=== PATIENT | female | born 1990 | race Hispanic/Latino ===

== ENCOUNTER 2016-11-29 18:08 | Outpatient (CLI) | payer MEDICAID ==
[2016-11-29] MEDS ORDERED: LACTATED RINGERS 500 ML IV ONE ×2 (19:05→19:06)
[2016-11-29 20:49] LABS: Bilirubin,Urine NEG (Negative); Blood,Urine NEG (Negative); Ketones,Urine NEG (Negative); Leukocyte Esterase,Urine NEG (Negative); Mucus,Urine 3+ /HPF; Nitrite,Urine NEG (Negative); Protein,Urine <15 mg/dL mg/dL (Negative); Urobilinogen,Urine < 2.0 mg/dL (<2.0)
--- NOTE | 2016-12-02 07:55 | Ultrasound Report ---
OB LIMITED History: Bleeding, evaluate for abruption, evaluate placenta. Technique: Transabdominal ultrasound with Doppler interrogation. Gestation: Single Position: Transverse, head to maternal left Placenta: Posterior, marginal previa is suspected. No abruption. Placental Grade: 0 Heart Rate: 141 BPM Cervical length: 3.8 cm (Normal > 3 cm)
[2016-12-04 12:25] VITALS: BP 106/53
== END 2016-11-29 21:40 | disposition home or self-care (01) ==
LOC: TRG 18:08
PROVIDERS: ATTEND Obstetrics & Gynecology
DX: O46.92 Antepartum hemorrhage, unspecified, second trimester (principal); O77.9 Labor and delivery complicated by fetal stress, unspecified; O47.02 False labor before 37 completed weeks of gestation, second trimester; Z3A.23 23 weeks gestation of pregnancy
CPT/HCPCS: 59025; 76815; 81001; 96360; J7120

== ENCOUNTER 2016-12-29 08:34 | Outpatient (CLI) | payer MEDICAID ==
[2016-12-29] MEDS ORDERED: LACTATED RINGERS 1,000 ML ONE (10:15)
[2016-12-29] MEDS ORDERED: LACTATED RINGERS 500 ML IV ONE (10:58)
[2016-12-31 12:32] VITALS: BP 101/57
== END 2016-12-29 12:10 | disposition home or self-care (01) ==
LOC: TRG 08:34
PROVIDERS: ATTEND Obstetrics & Gynecology
DX: O47.02 False labor before 37 completed weeks of gestation, second trimester (principal); O44.12 Complete placenta previa with hemorrhage, second trimester; Z3A.27 27 weeks gestation of pregnancy
CPT/HCPCS: J7120

== ENCOUNTER 2017-02-24 13:18 | Outpatient (CLI) | payer MEDICAID ==
[2017-02-24] MEDS ORDERED: LACTATED RINGERS 500 ML IV ONE (13:42)
--- NOTE | 2017-02-24 14:28 | Ultrasound Report ---
BIOPHYSICAL PROFILE: INDICATION: well being, PROM. COMPARISON: 01/02/2017. TECHNIQUE: Transabdominal ultrasound with Doppler interrogation. 2 - breathing movements 2 - movements 2 - posture and tone 2 - Qualitative amniotic fluid volume 8 - TOTAL SCORE OF POSSIBLE 8 Heart Rate (bpm) 138
--- NOTE | 2017-02-24 14:29 | Ultrasound Report ---
OB LIMITED INDICATION: well being, PROM. COMPARISON: 01/02/2017 TECHNIQUE: Transabdominal grayscale ultrasound with Doppler interrogation. Gestation: Wild Position: Cephalic Amniotic Fluid: WNL (7-24 cm) KAMARI = 15.2 cm Heart Rate: 138 BPM
[2017-02-24 14:46] VITALS: BP 96/51
[2017-02-24] MEDS ORDERED: TYLENOL PO ONE (15:11)
== END 2017-02-24 15:20 | disposition home or self-care (01) ==
LOC: TRG 13:18
PROVIDERS: ATTEND Obstetrics & Gynecology
DX: O47.03 False labor before 37 completed weeks of gestation, third trimester (principal); Z3A.35 35 weeks gestation of pregnancy
CPT/HCPCS: 59025; 76815; 76819

== ENCOUNTER 2017-03-03 16:01 | Outpatient (CLI) | payer MEDICAID ==
[2017-03-03 16:24] VITALS: BP 103/66
--- NOTE | 2017-03-04 08:08 | Ultrasound Report ---
ULTRASOUND BIOPHYSICAL PROFILE: History: Vaginal bleeding during Technique: Transabdominal ultrasound with Doppler interrogation. 2 - breathing movements 2 - movements 2 - posture and tone 2 - Qualitative amniotic fluid volume 8 - TOTAL SCORE OF POSSIBLE 8 Heart Rate (bpm) 143
--- NOTE | 2017-03-04 08:08 | Ultrasound Report ---
ULTRASOUND OB LIMITED History: Vaginal bleeding during Technique: Transabdominal ultrasound with Doppler interrogation. Gestation: Single Position: Cephalic Amniotic Fluid: Normal KAMARI = 12.3 cm Placenta: Fundal Placental Grade: 1 There is no evidence for abruption. Heart Rate: 143 BPM
== END 2017-03-03 17:25 | disposition home or self-care (01) ==
LOC: TRG 16:01
PROVIDERS: ATTEND Obstetrics & Gynecology
DX: O46.92 Antepartum hemorrhage, unspecified, second trimester (principal); O47.03 False labor before 37 completed weeks of gestation, third trimester; Z3A.36 36 weeks gestation of pregnancy
CPT/HCPCS: 59025; 76815; 76819

== ENCOUNTER 2017-03-04 07:52 | Inpatient (IN) | payer MEDICAID ==
[2017-03-04] MEDS: LACTATED RINGERS 1,000 ML IV SCH (09:31)
[2017-03-04 10:13] LABS: Basophils % (Auto) 0.3 % (0.0-1.8); Eosinophils % (Auto) 0.9 % (0.0-4.3); Hematocrit 29.8 % (30.3-42.9); Hemoglobin 9.9 gm/dl (10.1-14.3); Mean Corpuscular HGB Conc 33 % (30-34); Mean Corpuscular Hemoglobin 31 pg (28-32); Mean Corpuscular Volume 93 fl (79-97); Platelet Count 172 K/mm3 (140-440); Red Blood Count 3.21 M/mm3 (3.65-5.03); Red Cell Distribution Width 12.9 % (13.2-15.2); White Blood Count 13.1 K/mm3 (4.5-11.0)
[2017-03-04 10:15] LABS: Bilirubin,Urine NEG (Negative); Blood,Urine NEG (Negative); Ketones,Urine NEG (Negative); Leukocyte Esterase,Urine NEG (Negative); Mucus,Urine 3+ /HPF; Nitrite,Urine NEG (Negative); Protein,Urine <15 mg/dL mg/dL (Negative); Urobilinogen,Urine < 2.0 mg/dL (<2.0)
[2017-03-04] MEDS ORDERED: ZOFRAN IV PRN (11:03)
[2017-03-04] MEDS: TYLENOL PO PRN ×2 (11:30→22:11)
--- NOTE | 2017-03-04 14:21 | Consultation ---
History of Present Illness Consult date: 03/04/17 Requesting physician: DOMINIC LOUIS Reason for consult: other (vaginal bleeding.) History of present illness: Thank you for your recent consultation regarding the above named patient. As you are aware, she is a 26 year-old para 1113 at 36 weeks gestation based on an LUCY of 03/29/17 admitted to [facility] due to vaginal bleeding. Patient has been under observation due to vaginal bleeding earlier today. Patient was seen for similar complaints yesterday and was discharged home but returns for recurrent symptoms. Vaginal exam shows minimal bleeding consistent with possible bloody show. Patient shows agitation/anxiety regarding vaginal bleeding. An ultrasound performed showed No placenta previa. Her recent vaginal exam was deferred. PAST OBSTETRICAL HISTORY: 2011: Twins C/S 34 weeks (BW: 4 pounds 6 oz, 2 pounds 7 oz) 2012: C/S at term BW: 7 pounds 15 oz SAB x 1 ULTRASOUND: See report in patients chart. No previa. Current measurements by ultrasound yield EGA 36 weeks Past History - Obstetrical History : 4 Medications and Allergies Allergies Allergy/AdvReac Type Severity Reaction Status Date / Time Latex, Natural Rubber Allergy Hives Verified 03/04/17 08:40 Home Medications Medication Instructions Recorded Confirmed Last Taken Type Ferrous Sulfate [Feosol 325 MG tab] 325 mg PO BID #60 tablet 01/04/17 02/24/17 21:00 Rx 1 Vit-Fe Fumar-FA [ 1 each PO QDAY tablet 01/04/17 03/04/17 21:00 Rx Vitamin] 1 Active Meds: Active Medications Acetaminophen (Tylenol) 650 mg PO Q4H PRN PRN Reason: Pain, Mild (1-3) Last Admin: 03/04/17 11:30 Dose: 650 mg Lactated Ringer's (Lactated Ringers) 1,000 mls @ 125 mls/hr IV DIRECT GIANA Last Admin: 03/04/17 09:31 Dose: 125 mls/hr Ondansetron HCl (Zofran) 4 mg IV Q4H PRN PRN Reason: Nausea And Vomiting Last Admin: 03/04/17 11:30 Dose: 4 mg - Vital Signs Vital signs: Vital Signs Pulse Pulse Ox 86 97 03/04/17 08:15 03/04/17 08:15 Temp Pulse Resp BP Pulse Ox 98.1 F 75 16 104/55 99 03/04/17 14:13 03/04/17 09:58 03/04/17 14:13 03/04/17 09:58 03/04/17 08:57 Results Result Diagrams: 03/04/17 09:00 Abnormal lab results 03/04/17 Range/Units 09:00 WBC 13.1 H (4.5-11.0) K/mm3 RBC 3.21 L (3.65-5.03) M/mm3 Hgb 9.9 L (10.1-14.3) gm/dl Hct 29.8 L (30.3-42.9) % RDW 12.9 L (13.2-15.2) % Lymph % (Auto) 12.9 L (13.4-35.0) % Seg Neutrophils % 80.1 H (40.0-70.0) % Seg Neutrophils # 10.5 H (1.8-7.7) K/mm3 All other labs normal. Assessment and Plan ASSESSMENT 1. As stated above this is a 26 year old para 1113 at 36 weeks with vaginal bleeding. 2. Rule out bloody show 3. Unlikely abruption. 4. No evidence of placenta previa. 5. Category 1 tracing. 6. Maternal anxiety. RECOMMENDATIONS 1. Patient is currently stable. 2. Patient may have regular diet. 3. We agree for observation to rule out progressive labor change in status. 4. Vaginal bleeding has decreased. 5. No evidence of placental abruption.. 6. Observe x 24-48 hours. 7. Please consider a social service consultation due to patient agitation and anxiety. 8. Consider discharge home if stable by tomorrow.. 9. We would recommend discharge home and continued follow-up with [facility]. We look forward to the opportunity to assist in her continued management. If you have any questions, please contact our office at [phone]. Anita Love M.D.
--- NOTE | 2017-03-04 17:26 | History and Physical Report ---
History of Present Illness Date of examination: 03/04/17 Date of admission: 03/04/17 10:45 Chief complaint: Vaginal bleeding again ( was seen yesterday) History of present illness: This is a 26 yo at 35 weeks here for vaginal bleeding. She was seen yesterday for bleeding an noted to have normal US and no evidence of abruption and BPP 8/. Patient was encouraged to f/u for any concerns of bleeding. Patient noted that early this am while urinating she wiped and noticed blood on tissue and even took pictures of the bleeding ( about a 3 teaspoons full. ) She denies any contractions no leaking and good movement. course include hx of placenta previa resolved Hx of 2 previous c/sec subchorionic bleed reolved Hx of trich and chlam in this treated and arely neg 12/13/16 s/p BMZ at 23 weeks 11/2016 Past History Past Medical History: no pertinent history Past Surgical History: section [employer]ATEGIST History: chlamydia, trichomonas Family/Genetic History: none Social history: single. denies: smoking, alcohol abuse, IV drug use - Obstetrical History Expected Date of Delivery: 03/29/17 Actual Gestation: 36 Week(s) 3 Day(s) : 4 Para: 3 Hx # Term Pregnancies: 1 Number of Pregnancies: 2 Spontaneous Abortions: 0 Induced : 0 Number of Living Children: 3 Medications and Allergies Allergies Allergy/AdvReac Type Severity Reaction Status Date / Time Latex, Natural Rubber Allergy Hives Verified 03/04/17 08:40 Home Medications Medication Instructions Recorded Confirmed Last Taken Type Ferrous Sulfate [Feosol 325 MG tab] 325 mg PO BID #60 tablet 01/04/17 02/24/17 21:00 Rx 1 Vit-Fe Fumar-FA [ 1 each PO QDAY tablet 01/04/17 03/04/17 21:00 Rx Vitamin] 1 Active Meds: Active Medications Acetaminophen (Tylenol) 650 mg PO Q4H PRN PRN Reason: Pain, Mild (1-3) Last Admin: 03/04/17 11:30 Dose: 650 mg Lactated Ringer's (Lactated Ringers) 1,000 mls @ 125 mls/hr IV DIRECT GIANA Last Admin: 03/04/17 09:31 Dose: 125 mls/hr Ondansetron HCl (Zofran) 4 mg IV Q4H PRN PRN Reason: Nausea And Vomiting Last Admin: 03/04/17 11:30 Dose: 4 mg Review of Systems All systems: negative Constitutional: weight gain Eyes: deferred Ears, nose, mouth and throat: deferred Breasts: deferred Gastrointestinal: no nausea, no vomiting Genitourinary: vaginal bleeding, vaginal discharge, no leakage of fluid, no pelvic pain, no genital sores, no contractions Rectal Exam: deferred Integumentary: deferred - Vital Signs Vital signs: Vital Signs Pulse Pulse Ox 86 97 03/04/17 08:15 03/04/17 08:15 Temp Pulse Resp BP Pulse Ox 98.1 F 80 16 103/59 99 03/04/17 14:13 03/04/17 16:18 03/04/17 14:13 03/04/17 16:18 03/04/17 08:57 - Physical Exam Breasts: Positive: deferred Cardiovascular: Regular rate, Normal S1, Normal S2 Lungs: Positive: Clear to auscultation, Normal air movement Abdomen: Positive: normal appearance, soft. Negative: distention, tenderness, mass Genitourinary (Female): Positive: normal external genitalia, normal perenium Vulva: both: normal Vagina: Positive: normal moisture, other (minimal dark blood in vault ) Cervix: Negative: lesion Uterus: Positive: enlarged Adnexa: both: normal Deep Tendon Reflex Grade: Normal +2 - Obstetrical FHR: category 1 Uterine Contraction Pattern: Absent Uterine Tone Measurement Phase: Resting Results Result Diagrams: 03/04/17 09:00 Abnormal lab results 03/04/17 Range/Units 09:00 WBC 13.1 H (4.5-11.0) K/mm3 RBC 3.21 L (3.65-5.03) M/mm3 Hgb 9.9 L (10.1-14.3) gm/dl Hct 29.8 L (30.3-42.9) % RDW 12.9 L (13.2-15.2) % Lymph % (Auto) 12.9 L (13.4-35.0) % Seg Neutrophils % 80.1 H (40.0-70.0) % Seg Neutrophils # 10.5 H (1.8-7.7) K/mm3 All other labs normal. Ultrasound: report reviewed Assessment and Plan A/P HD#1 vaginal bleeding No evidence of abruption nor previa stable vss bleeding decreased anxious about bleeding - will send for social service consult if bleeding remains same or improves d/c home tomorrow rh+ no rhogam indicated continue appt with [facility]
[2017-03-04] MEDS ORDERED: AMBIEN PO PRN (17:49)
[2017-03-05] MEDS: LACTATED RINGERS 1,000 ML IV SCH ×2 (01:00→07:58)
[2017-03-05 07:46] VITALS: BP 99/55
[2017-03-05] MEDS: TYLENOL PO PRN (07:56)
--- NOTE | 2017-03-05 08:54 | Progress Note ---
Assessment and Plan A/P HD#2 vaginal bleeding No evidence of abruption nor previa stable vss bleeding decreased-- overnight only brownish discharge anxious about bleeding - social service to see today D/c home today rh+ no rhogam indicated continue appt with [facility] Subjective - Subjective Date of service: 03/05/17 Principal diagnosis: vaginal bleeding in third trimester Interval history: This is a 26 yo at 35 weeks here for vaginal bleeding. She was seen yesterday for bleeding an noted to have normal US and no evidence of abruption and BPP 06/10. Patient was encouraged to f/u for any concerns of bleeding. Patient noted that early this am while urinating she wiped and noticed blood on tissue and even took pictures of the bleeding ( about a 3 teaspoons full. ) She denies any contractions no leaking and good movement. course include hx of placenta previa resolved Hx of 2 previous c/sec subchorionic bleed reolved Hx of trich and chlam in this treated and arely neg 12/13/16 s/p BMZ at 23 weeks 11/2016 Patient reports: vaginal bleeding (decreasing brownish d/c no active bleeding ) , no loss of fluid Objective - Vital Signs Vital Signs: Vital Signs - 12hr 03/05/17 03/05/17 03/05/17 01:29 06:00 07:43 Temperature 98.5 F 98.5 F Pulse Rate 86 75 Pulse Rate [ From Monitor] Respiratory 20 Rate Blood Pressure 97/54 99/55 Blood Pressure [Right Arm] 03/05/17 07:47 Temperature 97.4 F L Pulse Rate Pulse Rate [ 75 From Monitor] Respiratory 20 Rate Blood Pressure Blood Pressure 99/55 [Right Arm] - Exam Breasts: normal Cardiovascular: Regular rate, Normal S1, Normal S2 Lungs: Clear to auscultation Abdomen: Present: normal appearance, soft, normal bowel sounds. Absent: distention, tenderness Vulva: both: normal Uterus: Present: normal FHR: category 1 - Labs Labs: Abnormal Labs 03/04/17 09:00 WBC 13.1 H RBC 3.21 L Hgb 9.9 L Hct 29.8 L RDW 12.9 L Lymph % (Auto) 12.9 L Seg Neutrophils % 80.1 H Seg Neutrophils # 10.5 H Laboratory Results - last 24 hr 03/04/17 03/04/17 03/04/17 09:00 09:00 09:30 WBC 13.1 H RBC 3.21 L Hgb 9.9 L Hct 29.8 L MCV 93 MCH 31 MCHC 33 RDW 12.9 L Plt Count 172 Lymph % (Auto) 12.9 L Summers % (Auto) 5.8 Eos % (Auto) 0.9 Baso % (Auto) 0.3 Lymph # 1.7 Summers # 0.8 Eos # 0.1 Baso # 0.0 Seg Neutrophils % 80.1 H Seg Neutrophils # 10.5 H Urine Color Yellow Urine Turbidity Clear Urine pH 6.0 Ur Specific [place] 1.019 Urine Protein <15 mg/dl Urine Glucose (UA) Neg Urine Ketones Neg Urine Blood Neg Urine Nitrite Neg Urine Bilirubin Neg Urine Urobilinogen < 2.0 Ur Leukocyte Esterase Neg Urine WBC (Auto) 1.0 Urine RBC (Auto) 2.0 U Epithel Cells (Auto) 3.0 Urine Mucus 3+ Blood Type O POSITIVE RAINE Antibody Screen Negative
--- NOTE | 2017-03-05 09:08 | Discharge Summary ---
Providers - Providers Date of Admission: 03/04/17 10:45 Date of discharge: 03/05/17 Attending physician: DOMINIC LOUIS 03/04/17 09:14 Consult to Physician [CONS] Urgent Consulting Provider: KIMBERLY DELATORRE Reason For Exam: vaginal bleeding [address] consult to:: MARIANELA Notified:: yes Phone number called:: [phone] Was contact made?: Yes Time called:: 09:15 03/04/17 17:34 Consult to Case Management [CONS] Urgent Services Needed at Discharge: [employer] Notified:: no Phone number called:: [phone] Was contact made?: No Time called:: 05:45 Primary care physician: DOMINIC LOUIS Hospitalization Reason for admission: vaginal bleeding Discharge diagnosis: other (vaginal bleeding in third trimester ; decreased no active bleeding ) Condition at discharge: Good Disposition: DISCHARGED TO HOME OR SELFCARE Plan - Provider Discharge Summary Activity: no sex for 6 weeks Diet: routine Instructions: routine Additional instructions: [] Smoking cessation referral if applicable(refer to patient education folder for contact #) [] Refer to [facility]'s [facility] Booklet Call your doctor immediately for: * Fever > 100.5 * Heavy vaginal bleeding ( >1 pad per hour) * Severe persistent headache * Shortness of breath * Reddened, hot, painful area to leg or breast * Drainage or odor from incision. * Keep incision clean and dry at all times and follow doctor's instructions regarding bathing/showering - Follow up plan Follow up: DOMINIC LOUIS MD [Primary Care Provider] - 7 Days
== END 2017-03-05 10:31 | disposition home or self-care (01) | DRG 781 ==
LOC: TRG 07:52 → LD 09:55 → OBSVTOIN 10:45
PROVIDERS: ADMIT Obstetrics & Gynecology; ATTEND Obstetrics & Gynecology
DX: O46.93 Antepartum hemorrhage, unspecified, third trimester (principal); O99.343 Other mental disorders complicating pregnancy, third trimester; F41.9 Anxiety disorder, unspecified; Z3A.36 36 weeks gestation of pregnancy; Z91.040 Latex allergy status
CPT/HCPCS: 36415; 59025; 81001; 85025; 86850; 86900; 86901; J2405; J7120

== ENCOUNTER 2017-03-08 12:48 | Outpatient (CLI) | payer MEDICAID ==
[2017-03-08 16:29] VITALS: BP 86/50
== END 2017-03-08 17:15 | disposition home or self-care (01) ==
LOC: TRG 12:48
PROVIDERS: ATTEND Obstetrics & Gynecology
DX: O47.1 False labor at or after 37 completed weeks of gestation (principal); Z3A.37 37 weeks gestation of pregnancy
CPT/HCPCS: 59025

== ENCOUNTER 2017-03-09 02:34 | Inpatient (IN) | payer MEDICAID ==
[2017-03-09] MEDS ORDERED: LACTATED RINGERS 1,000 ML IV ONE (03:04)
[2017-03-09 03:25] LABS: Basophils % (Auto) 0.1 % (0.0-1.8); Eosinophils % (Auto) 0.8 % (0.0-4.3); Hematocrit 31.6 % (30.3-42.9); Hemoglobin 10.5 gm/dl (10.1-14.3); Mean Corpuscular HGB Conc 33 % (30-34); Mean Corpuscular Hemoglobin 31 pg (28-32); Mean Corpuscular Volume 92 fl (79-97); Platelet Count 191 K/mm3 (140-440); Red Blood Count 3.44 M/mm3 (3.65-5.03); Red Cell Distribution Width 13.3 % (13.2-15.2); White Blood Count 16.7 K/mm3 (4.5-11.0)
[2017-03-09] MEDS ORDERED: SUBLIMAZE IV ONE ×2 (04:00→07:32)
[2017-03-09] MEDS ORDERED: ZOFRAN IV ONE (04:00)
[2017-03-09] MEDS ORDERED: LACTATED RINGERS 1,000 ML ONE (07:01)
[2017-03-09] MEDS ORDERED: REGLAN ONE (07:01)
[2017-03-09] MEDS ORDERED: BICITRA ONE (07:01)
[2017-03-09] MEDS ORDERED: PITOCin/NS 20 UNIT/1000ML DRIP 20,000 MILLIUNITS/1,000 ML BAG IV ONE (07:01)
[2017-03-09] MEDS ORDERED: SUBLIMAZE ONE ×2 (07:02→09:54)
[2017-03-09] MEDS ORDERED: PEPCID IV ONE ×2 (07:02→07:30)
[2017-03-09] MEDS ORDERED: REGLAN IV ONE (07:30)
[2017-03-09] MEDS ORDERED: BICITRA PO ONE (07:30)
[2017-03-09] MEDS ORDERED: LACTATED RINGERS 1,000 ML IV SCH (08:00)
[2017-03-09] MEDS ORDERED: PITOCin/NS 20 UNIT/1000ML DRIP 20 UNITS/1,000 ML BAG IV SCH ×2 (08:00→10:00)
--- NOTE | 2017-03-09 08:30 | Anesthesia Consultation ---
Anesthesia Consult and Med Hx Date of service: 03/09/17 - Airway Anesthetic Teeth Evaluation: Good ROM Head & Neck: Adequate Mental/Hyoid Distance: Adequate Mallampati Class: Class II Intubation Access Assessment: Probably Good - Pulmonary Exam CTA: Yes - Cardiac Exam Cardiac Exam: RRR - Pre-Operative Health Status ASA Pre-Surgery Classification: ASA2 Proposed Anesthetic Plan: Spinal - Pulmonary Hx Smoking: Yes (less than 1/2 ppd, not daily) Hx Asthma: No COPD: No Hx Pneumonia: No - Cardiovascular System Hx Hypertension: No - Central Nervous System Hx Seizures: No Hx Psychiatric Problems: No - Gastrointestinal Hx Gastroesophageal Reflux Disease: No - Endocrine Hx Renal Disease: No Hx End Stage Renal Disease: No Hx Hypothyroidism: No Hx Hyperthyroidism: No - Hematic Hx Anemia: No Hx Sickle Cell Disease: No - Other Systems Hx Alcohol Use: No Hx Substance Use: No
--- NOTE | 2017-03-09 08:30 | Anesthesia Day of Surgery ---
Anesthesia Day of Surgery - Day of Surgery Patient Examined: Yes Patient H&P Reviewed: Yes Patient is NPO: Yes
[2017-03-09] MEDS ORDERED: MORPHINE ONE (08:34)
[2017-03-09] MEDS ORDERED: NARCAN 0.4 MG/1 ML IV PRN (09:00)
--- NOTE | 2017-03-09 09:14 | History and Physical Report ---
History of Present Illness Date of examination: 03/09/17 Date of admission: 03/09/17 03:04 Chief complaint: vaginal bleeding History of present illness: 26y/o @ 37+1 weeks presents to triage for the 2nd day with the complaint of vaginal bleeding. Patient states the bleeding was worsening along with her contractions. Her has been complicated by bleeding throughout the . She had a previa that has resolved. The patient has had STD exposure during the . +tobacco use during the . She denies leakage of fluid. Past History Past Medical History: no pertinent history Past Surgical History: section [employer] History: chlamydia, trichomonas Social history: single, smoking - Obstetrical History Expected Date of Delivery: 03/29/17 Actual Gestation: 37 Week(s) 1 Day(s) : 4 Para: 3 Hx # Term Pregnancies: 1 Number of Pregnancies: 1 Spontaneous Abortions: 0 Induced : 0 Number of Living Children: 3 Medications and Allergies Allergies Allergy/AdvReac Type Severity Reaction Status Date / Time Latex, Natural Rubber Allergy Hives Verified 03/04/17 08:40 Home Medications Medication Instructions Recorded Confirmed Last Taken Type No Known Home Medications [No 03/09/17 03/09/17 Unknown History Reported Home Medications] Active Meds: Active Medications Lactated Ringer's (Lactated Ringers) 1,000 mls @ 2,250 mls/hr IV PREOP GIANA Stop: 03/10/17 08:27 Last Admin: 03/09/17 08:33 Dose: 2,250 mls/hr Oxytocin/Sodium Chloride (Pitocin/Ns 20 Unit/1000ml Drip) 20 units in 1,000 mls @ 0 mls/hr IV TITR GIANA PRN Reason: As Directed Review of Systems All systems: negative Genitourinary: vaginal bleeding, contractions - Vital Signs Vital signs: Vital Signs Pulse BP Pulse Ox 86 99/56 96 03/09/17 02:59 03/09/17 02:59 03/09/17 02:59 Temp Pulse Resp BP Pulse Ox 97.6 F 81 18 112/69 98 03/09/17 07:10 03/09/17 07:11 03/09/17 07:32 03/09/17 07:11 03/09/17 07:10 - Physical Exam Breasts: Positive: deferred Cardiovascular: Regular rate Lungs: Positive: Clear to auscultation Abdomen: Positive: normal appearance, soft - Obstetrical FHR: category 1 Uterine Contraction Monitor Mode: External Results Result Diagrams: 03/09/17 02:56 Abnormal lab results 03/09/17 Range/Units 02:56 WBC 16.7 H (4.5-11.0) K/mm3 RBC 3.44 L (3.65-5.03) M/mm3 [place] # 1.0 H (0.0-0.8) K/mm3 Seg Neutrophils % 78.9 H (40.0-70.0) % Seg Neutrophils # 13.2 H (1.8-7.7) K/mm3 All other labs normal. Assessment and Plan - Patient Problems (1) Previous delivery affecting Current Visit: No Status: Acute Plan to address problem: patient is experiencing worsening of her vaginal bleeding; will proceed with a repeat (2) Tobacco abuse Current Visit: No Status: Acute (3) Vaginal bleeding during , antepartum Current Visit: No Status: Acute Qualifiers: Trimester: T
[2017-03-09] MEDS ORDERED: WATER FOR IRRIG STERILE IR ONE (09:15)
[2017-03-09] MEDS ORDERED: NACL 0.9% IR ONE (09:15)
[2017-03-09] MEDS ORDERED: LANSINOH TP PRN (09:18)
--- NOTE | 2017-03-09 09:22 | Procedure Note ---
OB Delivery Note - Delivery Date of Delivery: 03/09/17 Surgeon: ADRIEL JONAS Estimated blood loss: other (600ml) - Section Preop diagnosis: repeat , other (vaginal bleeding and contractions) Postop diagnosis: same section procedure: section, repeat low transverse Disposition: PACU Complications: none - A at 1 minute: 7 at 5 minutes: 6 Gender: Male (Apgars of 7,6 and 8 at 10 minutes; weight 6 lbs. 10 oz.)
[2017-03-09] MEDS ORDERED: ePHEDrine SULFATE ONE (09:40)
[2017-03-09] MEDS ORDERED: ZOFRAN ONE (09:43)
[2017-03-09] MEDS ORDERED: VERSED ONE (09:49)
[2017-03-09] MEDS ORDERED: TYLENOL PO PRN (10:00)
[2017-03-09] MEDS ORDERED: SODIUM CHLORIDE FLUSH SYRINGE 10 ML IV NR (10:00)
[2017-03-09] MEDS ORDERED: TUCKS PAD TP PRN (10:00)
[2017-03-09] MEDS ORDERED: D5LR 1,000 ML IV SCH (10:00)
[2017-03-09] MEDS ORDERED: TORADOL ONE (10:00)
--- NOTE | 2017-03-09 10:17 | Operative Report ---
Operative Report Operative Report: Date of surgery: 03/09/2017 Preoperative diagnosis: at 37+1 weeks; prior delivery; chronic abruption; vaginal bleeding Postoperative diagnosis: Same as above Procedure: Repeat low transverse delivery Surgeon: Isabella Vinson M.D. Anesthesia: Regional Estimated blood loss: 600 mL Findings: Liveborn male with Apgars of 7, 6, 8; weight 6 lbs. 10 oz. Indications: 26-year-old @37+1 weeks who presents with vaginal bleeding and contractions. The patient's course has been complicated by vaginal bleeding throughout the and also a history of a placenta previa that resolved. She presented to triage with worsening of her vaginal bleeding and findings of irregular uterine contractions. Procedure: The patient was taken to the operating room and given regional anesthesia without complication. She was prepped and draped in a normal sterile fashion. A Pfannenstiel skin incision was made down to layer the fascia which was nicked in the midline extended laterally with the Bovie cautery. The superior aspect of the rectus fascia was grasped with Lauren clamps x2 and the rectus muscles off sharply. This was done in inferior fashion as well. The rectus muscle midline and peritoneum entered bluntly. An Oliverio retractor was then inserted. A bladder blade was placed. The vesicouterine peritoneum was then entered sharply with Metzenbaum scissors. A bladder flap was created digitally. A low transverse uterine incision was then made and extended digitally. There was clear fluid upon entry into the uterine cavity. The head was delivered through the incision with fundal pressure. The cord was clamped and cut x2 and was passed off to pediatrics. The placenta was then manually extracted. The placenta demonstrated evidence of old organized clot involving 15-20% of the placenta. The uterus was then exteriorized and cleared of clots and debris. The uterine incision was then closed in a running locked fashion with 0 Vicryl additional imbricating stitch was applied for 2 layer closure. The posterior cul-de-sac was then copiously irrigated. The uterus was replaced back into the abdomen and pelvis were the gutters were then irrigated. The Oliverio retractor was then removed. The peritoneum was then reapproximated with 3-0 Vicryl incorporating the rectus muscle. The fascia was then closed with 0 Vicryl in a running fashion. The skin was then reapproximated with 3-0 Monocryl on a Hector needle subcuticular fashion. Steri-Strips to place across the incision and a Crede procedures performed at the end of the surgery. A pressure dressing was applied to the incision. The surgery productive of a liveborn male with Apgars of 7, 6 , 8 and a weight of 6 lbs. 10 oz. The patient was taken to the recovery room in stable condition. All sponge laps and needle counts correct x2.
--- NOTE | 2017-03-09 10:31 | Post Anesthesia Evaluation ---
- Post Anesthesia Evaluation Patient Participated: Yes Airway Patent: Yes Stable Respiratory Function: Yes Nausea/Vomiting: No Temp > 96.8F: Yes Pain Manageable: Yes Adequeate Hydration: Yes Anesthesia Complications: No Block Receding Appropriately: Yes Patient on Ventilator: No
[2017-03-09] MEDS: TORADOL IV PRN ×2 (11:09→16:44)
[2017-03-09] MEDS ORDERED: MILK OF MAGNESIA PO PRN (22:00)
[2017-03-10] MEDS: PERCOCET 5/325 PO PRN ×4 (00:03→20:24)
--- NOTE | 2017-03-10 08:12 | Progress Note ---
Assessment and Plan A/P POD#1 s/p repeat c/s , chronic abruption doing well ambultating well bottle feeding and bonding with baby await h/h Post op ( a/p h/h 10.5/31.6) male -discussed circumcision desires nexplanon for cotnrol ( reviewed all other forms) VSS consider d/c home tomorrow Subjective - Subjective Date of service: 03/10/17 Principal diagnosis: s/p repeat c/s . chronic abruption Patient reports: appetite normal, voiding normally, pain well controlled, flatus , ambulating normally : doing well, bottle feeding Objective - Vital Signs Latest vital signs: Vital Signs Temp Pulse Pulse Resp BP BP Pulse Ox 03/10/17 05:56 18 03/10/17 05:00 98.1 F 67 20 94/57 03/09/17 23:14 98.3 F 74 20 102/57 03/09/17 20:00 98.4 F 76 20 94/53 03/09/17 16:00 98.2 F 67 20 100/59 03/09/17 11:35 98.0 F 68 18 105/59 03/09/17 11:15 98.0 F 68 16 111/58 100 03/09/17 11:09 18 03/09/17 11:00 98.1 F 69 16 108/59 100 03/09/17 10:45 98.2 F 66 17 104/58 100 03/09/17 10:30 66 16 104/57 98 03/09/17 10:25 64 104/57 98 03/09/17 10:19 97.9 F 66 16 105/47 98 Intake and Output 03/09/17 03/10/17 03/10/17 22:59 06:59 14:59 Intake Total 375 360 Output Total 600 1400 Balance -225 -1040 Intake: IV 375 PITOCin/NS 20 UNIT/1000ML 375 DRIP 20 units In 1,000 ml @ 250 mls/hr IV DIRECT GIANA Rx#:[id number] Oral 120 Intake, Free Water 240 Output: Urine 600 1400 Indwelling Catheter 100 700 Uretheral (Adan) 500 Void 700 Other: Total, Intake Amount 120 Total, Output Amount 100 700 # Voids Void 1 - Exam Breasts: Present: normal Cardiovascular: Present: Regular rate, Normal S1 Lungs: Present: Clear to auscultation, Normal air movement Abdomen: Present: normal appearance, soft. Absent: distention, tenderness, guarding Uterus: Present: normal, firm, fundal height below umbilicus (2 cm below) Extremities: Present: normal Deep Tendon Reflex Grade: Normal +2 Incision: Present: normal, dressed
[2017-03-10 09:55] LABS: Hematocrit 31.1 % (30.3-42.9); Hemoglobin 10.4 gm/dl (10.1-14.3); Mean Corpuscular HGB Conc 34 % (30-34); Mean Corpuscular Hemoglobin 31 pg (28-32); Mean Corpuscular Volume 92 fl (79-97); Platelet Count 197 K/mm3 (140-440); Red Blood Count 3.39 M/mm3 (3.65-5.03); Red Cell Distribution Width 13.1 % (13.2-15.2); White Blood Count 17.8 K/mm3 (4.5-11.0)
[2017-03-10] MEDS: MOTRIN PO PRN (13:15)
[2017-03-11] MEDS: MOTRIN PO PRN (03:45)
[2017-03-11] MEDS: PERCOCET 5/325 PO PRN (03:46)
--- NOTE | 2017-03-11 08:46 | Progress Note ---
Assessment and Plan - Patient Problems (1) Previous delivery affecting Current Visit: No Status: Acute Plan to address problem: doing well discharge home (2) Tobacco abuse Current Visit: No Status: Acute (3) Vaginal bleeding during , antepartum Current Visit: No Status: Acute Qualifiers: Trimester: T Subjective - Subjective Date of service: 03/11/17 Principal diagnosis: s/p repeat c/s . chronic abruption Interval history: Patient without complaints. Pain well controlled. Patient reports: appetite normal, voiding normally, pain well controlled [place]: doing well Objective - Vital Signs Latest vital signs: Vital Signs Temp Pulse Resp BP 03/11/17 00:36 98.4 F 73 16 107/63 03/10/17 16:00 98.6 F 66 16 104/63 Intake and Output 03/10/17 03/11/17 03/11/17 22:59 06:59 14:59 Intake Total 360 Balance 360 Intake: Intake, Free Water 360 Other: # Voids Void 400 2 - Exam Abdomen: Present: normal appearance, soft - Labs Labs: Abnormal lab results 03/10/17 Range/Units 09:36 WBC 17.8 H (4.5-11.0) K/mm3 RBC 3.39 L (3.65-5.03) M/mm3 RDW 13.1 L (13.2-15.2) %
--- NOTE | 2017-03-11 08:48 | Discharge Summary ---
Providers - Providers Date of Admission: 03/09/17 03:04 Date of discharge: 03/11/17 Attending physician: ADRIEL JONAS Primary care physician: ADRIEL JONAS Hospitalization Reason for admission: vaginal bleeding, section, other Delivery: Procedure: section, repeat low transverse Incision: normal, dry complications: none Discharge diagnosis: IUP at term delivered [place] baby: male Hospital course: Patient admitted for vaginal bleeding and contractions. Patient underwent a repeat delivery. Operative course was unremarkable. Placenta showed evidence of chronic abruption Condition at discharge: Good Disposition: DISCHARGED TO HOME OR SELFCARE - Discharge Diagnoses (1) Previous delivery affecting Status: Acute (2) Tobacco abuse Status: Acute (3) Vaginal bleeding during , antepartum Status: Acute Qualifiers: Trimester: T Plan - Discharge Medications Prescriptions: Docusate Sodium [Colace] 100 mg PO BID PRN #60 capsule PRN Reason: Constipation Docusate Sodium [Colace] 100 mg PO BID PRN #30 capsule PRN Reason: Constipation Ferrous Sulfate [Feosol 325 MG tab] 325 mg PO BID #60 tablet Ibuprofen [Motrin] 600 mg PO Q8H PRN #30 tablet PRN Reason: Pain Ibuprofen [Motrin] 800 mg PO Q8HR PRN #60 tablet PRN Reason: Pain oxyCODONE /ACETAMINOPHEN [Percocet 5/325] 1 tab PO Q6HR PRN #30 tablet PRN Reason: Pain Oxycodone HCl/Acetaminophen [Percocet 7.5/325 mg] 1 each PO Q6HR PRN #45 tablet PRN Reason: Pain - Provider Discharge Summary Activity: no sex for 6 weeks, no heavy lifting 4 weeks, no strenuous exercise Diet: routine Instructions: routine Additional instructions: [] Smoking cessation referral if applicable(refer to patient education folder for contact #) [] Refer to [facility] Booklet Call your doctor immediately for: * Fever > 100.5 * Heavy vaginal bleeding ( >1 pad per hour) * Severe persistent headache * Shortness of breath * Reddened, hot, painful area to leg or breast * Drainage or odor from incision. * Keep incision clean and dry at all times and follow doctor's instructions regarding bathing/showering Follow-up in 2 weeks for an incision check - Follow up plan Follow up: ADRIEL JONAS MD [Primary Care Provider] - 7 Days
[2017-03-11 09:23] VITALS: BP 85/50
== END 2017-03-11 11:00 | disposition home or self-care (01) | DRG 765 ==
LOC: LD 02:34 → TRG 02:34 → OBSVTOIN 03:04 → LD 03:04 → OB 11:40
PROVIDERS: ADMIT Obstetrics & Gynecology; ATTEND Obstetrics & Gynecology
PROC: 10D00Z1 Extraction of Products of Conception, Low, Open Approach (ICD-10-PCS; principal; 2017-03-09)
DX: O34.211 Maternal care for low transverse scar from previous cesarean delivery (principal); O45.93 Premature separation of placenta, unspecified, third trimester; O98.32 Other infections with a predominantly sexual mode of transmission complicating childbirth; F17.210 Nicotine dependence, cigarettes, uncomplicated; O99.334 Smoking (tobacco) complicating childbirth; Z3A.37 37 weeks gestation of pregnancy; Z37.0 Single live birth; Z91.040 Latex allergy status; Z91.048 Other nonmedicinal substance allergy status
CPT/HCPCS: 36415; 85025; 85027; 86850; 86900; 86901; 88307; 99211; G0463; J1885; J2250; J2270; J2405; J2590; J2765; J3010; J7120

== ENCOUNTER 2017-07-10 16:42 | Emergency (ER) | payer MEDICAID, OTHER ==
[2017-07-10] MEDS ORDERED: ULTRAM PO ONE (19:04)
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
[2017-07-10 20:33] VITALS: BP 116/82
== END 2017-07-10 20:30 | disposition home or self-care (01) ==
LOC: ED 16:42
DX: S16.1XXA Strain of muscle, fascia and tendon at neck level, initial encounter (principal); F17.200 Nicotine dependence, unspecified, uncomplicated; Z91.040 Latex allergy status; V87.7XXA Person injured in collision between other specified motor vehicles (traffic), initial encounter; Y93.89 Activity, other specified; Y99.9 Unspecified external cause status; Y92.410 Unspecified street and highway as the place of occurrence of the external cause
CPT/HCPCS: 99282

== ENCOUNTER 2017-10-12 13:33 | Emergency (ER) | payer SELFPAY ==
[2017-10-12 14:11] VITALS: BP 109/42
[2017-10-12 14:52] LABS: Basophils % (Auto) 0.6 % (0.0-1.8); Eosinophils % (Auto) 1.3 % (0.0-4.3); Hematocrit 42.4 % (30.3-42.9); Hemoglobin 14.4 gm/dl (10.1-14.3); Mean Corpuscular HGB Conc 34 % (30-34); Mean Corpuscular Hemoglobin 31 pg (28-32); Mean Corpuscular Volume 90 fl (79-97); Platelet Count 225 K/mm3 (140-440); Red Blood Count 4.69 M/mm3 (3.65-5.03); Red Cell Distribution Width 12.9 % (13.2-15.2); White Blood Count 7.7 K/mm3 (4.5-11.0)
[2017-10-12 15:04] LABS: Alanine Aminotransferase 10 units/L (7-56); Albumin 4.4 g/dL (3.9-5); Albumin/Globulin Ratio 1.5 %; Alkaline Phosphatase 98 units/L (35-129); Anion Gap 15 mmol/L; BUN/Creatinine Ratio 28; Blood Urea Nitrogen 17 mg/dL (7-17); Calcium 9.5 mg/dL (8.4-10.2); Carbon Dioxide 28 mmol/L (22-30); Glucose 64 mg/dL (65-100); Lipase 22 units/L (13-60); Potassium 4.4 mmol/L (3.6-5.0); Sodium 139 mmol/L (137-145); Total Protein 7.3 g/dL (6.3-8.2)
[2017-10-12 15:25] LABS: Bilirubin,Urine NEG (Negative); Blood,Urine NEG (Negative); Ketones,Urine NEG (Negative); Leukocyte Esterase,Urine NEG (Negative); Mucus,Urine FEW /HPF; Nitrite,Urine NEG (Negative); Protein,Urine <15 mg/dL mg/dL (Negative); Urobilinogen,Urine < 2.0 mg/dL (<2.0)
== END 2017-10-12 15:00 | disposition left against medical advice (07) ==
LOC: ED 13:33
DX: Z53.21 Procedure and treatment not carried out due to patient leaving prior to being seen by health care provider (principal)
CPT/HCPCS: 36415; 80053; 81001; 83690; 84702; 85025

== ENCOUNTER 2017-10-16 12:44 | Emergency (ER) | payer OTHER ==
[2017-10-16 12:51] VITALS: BP 105/67
[2017-10-16] MEDS ORDERED: MOTRIN PO ONE (13:38)
--- NOTE | 2017-10-16 13:41 | Emergency Department Report ---
Chief Complaint: Abdominal Pain Stated Complaint: ABDOMINAL PAIN Time Seen by Provider: 10/16/17 13:32 - HPI History of Present Illness: Patient is a 27-year-old female who is presenting with pelvic pain left greater than right. Patient states pain has been present for approximately one week. Patient was here 3 days ago but unfortunately had to leave because of the long wait. Patient was worried about . Her last menstrual period was in August. She has not had a menses since. She has had one positive test at home and 3 negative tests at home in that timeframe. Patient's serum test on October 12 was negative less than 2. Patient denies any discharge vaginal bleeding dysuria nausea vomiting diarrhea. - ROS Review of Systems: Review of systems negative except for those elements in HPI - Exam Vital Signs: Vital Signs 10/16/17 12:47 Temperature 98 F Pulse Rate 85 Respiratory 18 Rate Blood Pressure 105/67 O2 Sat by Pulse 100 Oximetry Physical Exam: Focused physical exam shows tenderness in the left lower quadrant. MSE screening note: Focused history and physical exam performed. Due to findings the following was ordered: Laboratory studies were reviewed by me and appeared within normal limits from her last visit. Patient did not receive a pelvic ultrasound because of her elopement. Patient will receive ultrasound to rule out ovarian torsion or ovarian cysts tubo-ovarian abscess. ED Disposition for MSE Condition: Stable Instructions: Abdominal Pain (ED)
--- NOTE | 2017-10-16 15:52 | Emergency Department Report ---
HPI - General Chief Complaint: Abdominal Pain Time Seen by Provider: 10/16/17 13:32 - HPI HPI: Patient is a 27-year-old female presents to ED complaining of abdominal pain. Patient was initially screened by Dr Lane, See MSE note for complete HPI. She denies no other symptoms at this time ED Past Medical Hx - Past Medical History Hx Hypertension: No Hx Congestive Heart Failure: No Hx Diabetes: No Hx Deep Vein Thrombosis: No Hx Renal Disease: No Hx Sickle Cell Disease: No Hx Seizures: No Hx Asthma: No Hx COPD: No Hx HIV: No - Surgical History Hx Cholecystectomy: Yes Additional Surgical History: csection x 3, DNC - Social History Smoking Status: Current Every Day Smoker Substance Use Type: None - Medications Home Medications: Home Medications Medication Instructions Recorded Confirmed Last Taken Type Docusate Sodium [Colace] 100 mg PO BID PRN #60 capsule 03/09/17 Unknown Rx Oxycodone HCl/Acetaminophen 1 each PO Q6HR PRN #45 tablet 03/09/17 Unknown Rx [Percocet 7.5/325 mg] Docusate Sodium [Colace] 100 mg PO BID PRN #30 capsule 03/10/17 Unknown Rx Ibuprofen [Motrin] 600 mg PO Q8H PRN #30 tablet 03/10/17 Unknown Rx oxyCODONE /ACETAMINOPHEN [Percocet 1 tab PO Q6HR PRN #30 tablet 03/10/17 Unknown Rx 5/325] Ferrous Sulfate [Feosol 325 MG tab] 325 mg PO BID #60 tablet 03/11/17 Unknown Rx Cyclobenzaprine [Flexeril] 10 mg PO TID PRN #30 tablet 07/10/17 Unknown Rx Naproxen [Naprosyn TAB] 500 mg PO BID PRN #60 tablet 07/10/17 Unknown Rx Acetaminophen/Codeine [Tylenol 1 tab PO Q6H PRN #10 tab 10/16/17 Unknown Rx /Codeine # 3 tab] Ibuprofen [Motrin 800 MG tab] 800 mg PO Q8HR PRN #30 tablet 10/16/17 Unknown Rx Norgestimate-Ethinyl Estradiol 1 each PO DAILY #28 tablet 10/16/17 Unknown Rx [Sprintec 28 Day Tablet] ED Review of Systems ROS: Stated complaint: ABDOMINAL PAIN Other details as noted in HPI Constitutional: denies: chills, fever Eyes: denies: eye pain, eye discharge, vision change ENT: denies: ear pain, throat pain Respiratory: denies: cough, shortness of breath, wheezing Cardiovascular: denies: chest pain, palpitations Endocrine: no symptoms reported Gastrointestinal: denies: abdominal pain, nausea, diarrhea Genitourinary: denies: urgency, dysuria, discharge Musculoskeletal: denies: back pain, joint swelling, arthralgia Skin: denies: rash, lesions Neurological: denies: headache, weakness, paresthesias Psychiatric: denies: anxiety, depression Hematological/Lymphatic: denies: easy bleeding, easy bruising Physical Exam - Physical Exam Vital Signs: Vital Signs 10/16/17 12:47 Temperature 98 F Pulse Rate 85 Respiratory 18 Rate Blood Pressure 105/67 O2 Sat by Pulse 100 Oximetry Physical Exam: GENERAL: Alert and oriented x3, no apparent distress, Normal Gait, atraumatic. HEAD: Head is normocephalic and a-traumatic. LUNGS: Symetrical with respiration, No wheezing, no rales or crackles, CTAB. HEART: S1, S2 present, regular rate and rhythm without murmur, no rubs, no gallops. Non tender to palpation ABDOMEN: No organomegaly was noted,Positive bowel sounds, soft, and non- distended. . Nontender to palpation on all Quadrants, NO CVA tenderness. BACK: Full range of motion, no spinal tenderness, nontender to palpation. SKIN: Warm and dry, No lesions, No ulceration or induration present. ED Course Vital Signs 10/16/17 12:47 Temperature 98 F Pulse Rate 85 Respiratory 18 Rate Blood Pressure 105/67 O2 Sat by Pulse 100 Oximetry ED Medical Decision Making - Radiology Data Radiology results: report reviewed, image reviewed FINAL REPORT EXAM: US PELVIC COMPLETE HISTORY: pelvic pain TECHNIQUE: Ultrasound evaluation of the pelvis using TRANSABDOMINAL technique PRIORS: Endovaginal pelvic ultrasound 10/16/2017 FINDINGS: The uterus measures 7.8 x 4.7 x 6.4 cm. There is a small nonspecific 14 mm simple appearing cystic structure adjacent to the upper anterior uterine fundus. It may be arising from the uterus or abutting it. No evidence of lesional vascularity with color Doppler imaging. Normal-appearing endometrium with 12 mm thickness. No endocavitary fluid. Normal-appearing ovaries. Right ovary is 3.9 x 2.9 x 2.9 cm and left measures 4.4 x 2.6 x 2.9 cm. No adnexal abnormality. No solid or cystic ovarian lesion. Ovarian blood flow noted bilaterally No pelvic cul-de-sac free fluid IMPRESSION: 14 mm simple appearing cystic structure adjacent to upper anterior uterine fundus. It may be arising from the uterus or abutting it Transcribed By: SUSI Dictated By: SILVIA GRANDE MD Electronically Authenticated By: SILVIA GRANDE MD Signed Date/Time: 10/16/17 1154 - Medical Decision Making female presents with pelvic pain secondary to urinary fibroids ED course: Urinalysis U tests are negative , ultrasound shows uterine fibroids otherwise negative. Discussed his findings with the patient. I discussed the patient to follow up with [facility]. I discussed the patient not using fibroids could cause low pelvic pain. I discussed the patient's symptoms worsen or new symptoms arise to return to ED immediately. Vital signs are normal patient is in no acute distress. Critical care attestation.: If time is entered above; I have spent that time in minutes in the direct care of this critically ill patient, excluding procedure time. ED Disposition Clinical Impression: Pelvic pain Uterine fibroid Qualifiers: Uterine leiomyoma location: intramural and subserous Qualified Code(s): D25.1 - Intramural leiomyoma of uterus Disposition: DC-01 TO HOME OR SELFCARE Is pt being admited?: No Does the pt Need Aspirin: No Condition: Stable Instructions: Uterine Fibroids (ED), Abdominal Pain (ED) Additional Instructions: Make sure to follow up with the [facility] as discussed. Take all your medications as you've been prescribed. If you have any worsening symptoms or develop new symptoms please return to ED immediately. Prescriptions: Acetaminophen/Codeine [Tylenol /Codeine # 3 tab] 1 tab PO Q6H PRN #10 tab PRN Reason: Pain Ibuprofen [Motrin 800 MG tab] 800 mg PO Q8HR PRN #30 tablet PRN Reason: Pain Norgestimate-Ethinyl Estradiol [Sprintec 28 Day Tablet] 1 each PO DAILY #28 tablet Referrals: GLORIA DAVIS MD [Primary Care Provider] - 3-5 Days VAL BUNN MD [Referring] - 3-5 Days LUIS BUNN MD [Referring] - 3-5 Days Forms: Work/School Release Form(ED) Time of Disposition: 16:07
--- NOTE | 2017-10-16 15:55 | Ultrasound Report ---
FINAL REPORT EXAM: US TRANSVAGINAL HISTORY: pelvic pain TECHNIQUE: Ultrasound evaluation of the pelvis using TRANSVAGINAL technique PRIORS: Transabdominal pelvic ultrasound 10/16/2017 FINDINGS: The uterus measures 7.8 x 4.7 x 6.4 cm. There is a small nonspecific 14 mm simple appearing cystic structure adjacent to the upper anterior uterine fundus. It may be arising from the uterus or abutting it. Normal-appearing endometrium with 12 mm thickness. No endocavitary fluid. Normal-appearing ovaries. Right ovary is 3.9 x 2.9 x 2.9 cm and left measures 4.4 x 2.6 x 2.9 cm. No adnexal abnormality. No solid or cystic ovarian lesion. Ovarian blood flow noted bilaterally No pelvic cul-de-sac free fluid IMPRESSION: 14 mm simple appearing cystic structure adjacent to the upper anterior uterine fundus. It may be arising from the uterus or abutting
--- NOTE | 2017-10-16 15:57 | Ultrasound Report ---
FINAL REPORT EXAM: US PELVIC COMPLETE HISTORY: pelvic pain TECHNIQUE: Ultrasound evaluation of the pelvis using TRANSABDOMINAL technique PRIORS: Endovaginal pelvic ultrasound 10/16/2017 FINDINGS: The uterus measures 7.8 x 4.7 x 6.4 cm. There is a small nonspecific 14 mm simple appearing cystic structure adjacent to the upper anterior uterine fundus. It may be arising from the uterus or abutting it. No evidence of lesional vascularity with color Doppler imaging. Normal-appearing endometrium with 12 mm thickness. No endocavitary fluid. Normal-appearing ovaries. Right ovary is 3.9 x 2.9 x 2.9 cm and left measures 4.4 x 2.6 x 2.9 cm. No adnexal abnormality. No solid or cystic ovarian lesion. Ovarian blood flow noted bilaterally No pelvic cul-de-sac free fluid IMPRESSION: 14 mm simple appearing cystic structure adjacent to upper anterior uterine fundus. It may be arising from the uterus or abutting it
== END 2017-10-16 16:39 | disposition home or self-care (01) ==
LOC: ED 12:44
DX: D25.9 Leiomyoma of uterus, unspecified (principal); F17.200 Nicotine dependence, unspecified, uncomplicated
CPT/HCPCS: 76830; 76856; 99283

== ENCOUNTER 2019-02-12 10:49 | Emergency (ER) | payer MEDICAID, SELFPAY ==
--- NOTE | 2019-02-12 11:29 | XRay Report ---
LEFT FOREARM: History: Fall, pain. AP and lateral views of the forearm demonstrate normal mineralization and contours for this patient's age. No destructive changes are noted and the adjacent soft tissues are normal. IMPRESSION: Normal left forearm.
[2019-02-12] MEDS ORDERED: IBUPROFEN PO ONE (12:09)
--- NOTE | 2019-02-12 12:15 | Emergency Department Report ---
ED Extremity Problem HPI - General Chief complaint: Extremity Injury, Upper Stated complaint: POSS BROKEN HAND/ARM Time Seen by Provider: 02/12/19 12:06 Source: patient Mode of arrival: Ambulatory Limitations: No Limitations - History of Present Illness Initial comments: Patient is a 28-year-old female who was removing some wallpaper on the job and she actually slipped and fell while coming down some stairs. Patient states the stairs were slick from some of the glue from the wallpaper. Patient fell down and put her left lower upper extremity down to brace her fall. Patient has pain at the distal forearm through the thumb. Patient states pain is worse with movement of thumb and with pronation and supination. Patient's denies any other injury at this time. Pain is throbbing and an 8 out of 10 in severity. - Related Data Previous Rx's Medication Instructions Recorded Last Taken Type Docusate Sodium [Colace] 100 mg PO BID PRN #60 capsule 03/09/17 Unknown Rx Oxycodone HCl/Acetaminophen 1 each PO Q6HR PRN #45 tablet 03/09/17 Unknown Rx [Percocet 7.5/325 mg] Docusate Sodium [Colace] 100 mg PO BID PRN #30 capsule 03/10/17 Unknown Rx Ibuprofen [Motrin] 600 mg PO Q8H PRN #30 tablet 03/10/17 Unknown Rx oxyCODONE /ACETAMINOPHEN [Percocet 1 tab PO Q6HR PRN #30 tablet 03/10/17 Unknown Rx 5/325] Ferrous Sulfate [Feosol 325 MG tab] 325 mg PO BID #60 tablet 03/11/17 Unknown Rx Cyclobenzaprine [Flexeril] 10 mg PO TID PRN #30 tablet 07/10/17 Unknown Rx Naproxen [Naprosyn TAB] 500 mg PO BID PRN #60 tablet 07/10/17 Unknown Rx Acetaminophen/Codeine [Tylenol 1 tab PO Q6H PRN #10 tab 10/16/17 Unknown Rx /Codeine # 3 tab] Ibuprofen [Motrin 800 MG tab] 800 mg PO Q8HR PRN #30 tablet 10/16/17 Unknown Rx Norgestimate-Ethinyl Estradiol 1 each PO DAILY #28 tablet 10/16/17 Unknown Rx [Sprintec 28 Day Tablet] HYDROcodone/ACETAMINOPHEN 1 each PO Q6HR PRN #12 tablet 02/12/19 Unknown Rx [Hydrocodone-Acetamin 5-325 mg] Ibuprofen [Ibu] 800 mg PO Q8H PRN #20 tablet 02/12/19 Unknown Rx Allergies Allergy/AdvReac Type Severity Reaction Status Date / Time Latex, Natural Rubber Allergy Hives Verified 02/12/19 10:50 ED Review of Systems ROS: Stated complaint: POSS BROKEN HAND/ARM Other details as noted in HPI Comment: All other systems reviewed and negative ED Past Medical Hx - Past Medical History Previous Medical History?: No Hx Hypertension: No Hx Congestive Heart Failure: No Hx Diabetes: No Hx Deep Vein Thrombosis: No Hx Renal Disease: No Hx Sickle Cell Disease: No Hx Seizures: No Hx Asthma: No Hx COPD: No Hx HIV: No - Surgical History Past Surgical History?: Yes Hx Cholecystectomy: Yes Additional Surgical History: csection x 3, D and C - Social History Smoking Status: Current Every Day Smoker Substance Use Type: None - Medications Home Medications: Home Medications Medication Instructions Recorded Confirmed Last Taken Type Docusate Sodium [Colace] 100 mg PO BID PRN #60 capsule 03/09/17 Unknown Rx Oxycodone HCl/Acetaminophen 1 each PO Q6HR PRN #45 tablet 03/09/17 Unknown Rx [Percocet 7.5/325 mg] Docusate Sodium [Colace] 100 mg PO BID PRN #30 capsule 03/10/17 Unknown Rx Ibuprofen [Motrin] 600 mg PO Q8H PRN #30 tablet 03/10/17 Unknown Rx oxyCODONE /ACETAMINOPHEN [Percocet 1 tab PO Q6HR PRN #30 tablet 03/10/17 Unknown Rx 5/325] Ferrous Sulfate [Feosol 325 MG tab] 325 mg PO BID #60 tablet 03/11/17 Unknown Rx Cyclobenzaprine [Flexeril] 10 mg PO TID PRN #30 tablet 07/10/17 Unknown Rx Naproxen [Naprosyn TAB] 500 mg PO BID PRN #60 tablet 07/10/17 Unknown Rx Acetaminophen/Codeine [Tylenol 1 tab PO Q6H PRN #10 tab 10/16/17 Unknown Rx /Codeine # 3 tab] Ibuprofen [Motrin 800 MG tab] 800 mg PO Q8HR PRN #30 tablet 10/16/17 Unknown Rx Norgestimate-Ethinyl Estradiol 1 each PO DAILY #28 tablet 10/16/17 Unknown Rx [Sprintec 28 Day Tablet] HYDROcodone/ACETAMINOPHEN 1 each PO Q6HR PRN #12 tablet 02/12/19 Unknown Rx [Hydrocodone-Acetamin 5-325 mg] Ibuprofen [Ibu] 800 mg PO Q8H PRN #20 tablet 02/12/19 Unknown Rx ED Physical Exam - General Limitations: No Limitations General appearance: alert, in no apparent distress - Head Head exam: Present: atraumatic, normocephalic - Eye Eye exam: Present: normal appearance, PERRL, EOMI - ENT ENT exam: Present: mucous membranes moist - Neck Neck exam: Present: normal inspection - Respiratory Respiratory exam: Absent: respiratory distress - Cardiovascular Cardiovascular Exam: Present: regular rate, normal rhythm - GI/Abdominal GI/Abdominal exam: Present: soft, normal bowel sounds. Absent: distended, tenderness, guarding, rebound - Extremities Exam Extremities exam: Present: normal inspection - Expanded Upper Extremity Exam Left Forearm Wrist exam: Present: tenderness, swelling, tenderness over anatomical snuff box. Absent: full ROM (secondary to pain), abrasion, laceration, deformity - Back Exam Back exam: Present: normal inspection - Neurological Exam Neurological exam: Present: alert, oriented X3 - Psychiatric Psychiatric exam: Present: normal affect, normal mood - Skin Skin exam: Present: warm, dry, intact, normal color. Absent: rash ED Course Vital Signs 02/12/19 11:02 Temperature 97.9 F Pulse Rate 81 Respiratory 20 Rate Blood Pressure 130/70 O2 Sat by Pulse 98 Oximetry ED Medical Decision Making - Radiology Data [facility] [address] [place] [address] XRay Report Signed Patient: FAINA DOWNS MR#: [id number] : 1990 Acct:[id number] Age/Sex: 28 / F ADM Date: 02/12/19 Loc: ED Attending Dr: Ordering Physician: REE LOUIE MD Date of Service: 02/12/19 Procedure(s): XR forearm LT Accession Number(s): [id number] cc: ED MD JACY Fluoro Time In Minutes: LEFT FOREARM: History: Fall, pain. AP and lateral views of the forearm demonstrate normal mineralization and contours for this patient's age. No destructive changes are noted and the adjacent soft tissues are normal. IMPRESSION: Normal left forearm. Transcribed By: TTR Dictated By: EDYTA CAST JR, MD Electronically Authenticated By: EDYTA CAST JR, MD Signed Date/Time: 02/12/191124 DD/ 24 TD/TT: 02/12/191124 - Medical Decision Making Patient with pain over the anatomical snuffbox and occult fracture of the scaphoid is possible. Patient placed in a thumb spica splint and is given meds for symptomatically relief. Patient will be given follow-up with orthopedics with Dr. Lee. This constitutes fracture care. Critical care attestation.: If time is entered above; I have spent that time in minutes in the direct care of this critically ill patient, excluding procedure time. ED Disposition Clinical Impression: Occult fracture of scaphoid Qualifiers: Encounter type: initial encounter Fracture type: closed Laterality: left Qualified Code(s): S62.002A - Unspecified fracture of navicular [scaphoid] bone of left wrist, initial encounter for closed fracture Disposition: -01 TO HOME OR SELFCARE Is pt being admited?: No Does the pt Need Aspirin: No Condition: Stable Instructions: Scaphoid Fracture (ED) Referrals: LISA LEE MD [Staff Physician] - 3-5 Days Time of Disposition: 12:16
[2019-02-12 13:32] VITALS: BP 122/74
== END 2019-02-12 13:30 | disposition home or self-care (01) ==
LOC: ED 10:49
DX: S62.002A Unspecified fracture of navicular [scaphoid] bone of left wrist, initial encounter for closed fracture (principal); F17.200 Nicotine dependence, unspecified, uncomplicated; Z90.49 Acquired absence of other specified parts of digestive tract; Z91.040 Latex allergy status; W01.0XXA Fall on same level from slipping, tripping and stumbling without subsequent striking against object, initial encounter; Y93.89 Activity, other specified; Y92.89 Other specified places as the place of occurrence of the external cause; Y99.8 Other external cause status

== ENCOUNTER 2019-03-28 22:51 | Emergency (ER) | payer OTHER ==
[2019-03-29] MEDS ORDERED: IBUPROFEN PO STA (00:25)
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
--- NOTE | 2019-03-29 01:38 | XRay Report ---
PROCEDURE: XR SPINE CERVICAL 2-3V TECHNIQUE: Cevical spine, AP, lateral and odontoid views. HISTORY: neck pain COMPARISONS: None . FINDINGS: Prevertebral soft tissues: Normal . Alignment: Normal . Vertebral body heights/Disk spaces: Normal . Fracture(s): None . Facets: Normal . Bone mineralization: Normal . IMPRESSION: Normal Examination . This document is electronically signed by Graciela Lane DO., Mar 29 2019 01:37:08 AM ET
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
[2019-03-29 03:42] VITALS: BP 102/66
== END 2019-03-29 03:27 | disposition home or self-care (01) ==
LOC: ED 22:51
DX: M25.571 Pain in right ankle and joints of right foot (principal); M54.2 Cervicalgia; M54.89 Other dorsalgia; Z90.49 Acquired absence of other specified parts of digestive tract; Z79.899 Other long term (current) drug therapy; Z91.040 Latex allergy status; Z91.041 Radiographic dye allergy status
CPT/HCPCS: 72040; 72100; 99283

== ENCOUNTER 2021-06-06 06:25 | Day surgery (SDC) | payer MEDICAID ==
[2021-05-31 10:19] LABS: Hematocrit 39.3 % (30.3-42.9); Hemoglobin 13.3 gm/dl (10.1-14.3); Mean Corpuscular HGB Conc 34 % (30-34); Mean Corpuscular Volume 93 fl (79-97); Platelet Count 232 K/mm3 (140-440); Red Blood Count 4.25 M/mm3 (3.65-5.03); Red Cell Distribution Width 13.1 % (13.2-15.2)
[~2021-06-06 06:25] MED LIST: ACETAMINOPHEN 500 MG TAB PO SCH; CELECOXIB 200 MG CAP PO NR; GABAPENTIN 300 MG CAP PO NR; LACTATED RINGERS 1,000 ML IV SCH; MIDAZOLAM 2 MG/2 ML INJ IV NR; SCOPOLAMINE TRANSDERMAL PATCH 72 HR TD NR; ceFAZolin/STERILE WATER 2 GM/20 ML SYRINGE IV NR
[2021-06-06] MEDS ORDERED: FAMOTIDINE 20 MG/2 ML INJ IV NR (07:24)
--- NOTE | 2021-06-06 07:24 | Anesthesia Day of Surgery ---
Anesthesia Day of Surgery - Day of Surgery Patient Examined: Yes Patient H&P Reviewed: Yes Patient is NPO: Yes
--- NOTE | 2021-06-06 07:24 | Anesthesia Consultation ---
Anesthesia Consult and Med Hx Date of service: 06/06/21 - Airway Anesthetic Teeth Evaluation: Chipped (some broken teeth in the back) ROM Head & Neck: Adequate Mental/Hyoid Distance: Adequate Mallampati Class: Class I Intubation Access Assessment: Good - Pre-Operative Health Status ASA Pre-Surgery Classification: ASA2 Proposed Anesthetic Plan: General - Pulmonary Hx Smoking: Yes (1/2 PACK/DAY) Hx Asthma: No COPD: No Hx Pneumonia: No Hx Sleep Apnea: No - Cardiovascular System Hx Hypertension: No - Central Nervous System Hx Seizures: No Hx Psychiatric Problems: No - Gastrointestinal Hx Gastroesophageal Reflux Disease: No - Endocrine Hx Renal Disease: Yes (BLADDER INFECTION ON FLAGYL) Hx End Stage Renal Disease: No Hx Hypothyroidism: No Hx Hyperthyroidism: No - Hematic Hx Anemia: No Hx Sickle Cell Disease: No - Other Systems Hx Alcohol Use: No Hx Substance Use: No Hx Cancer: No
[2021-06-06] MEDS ORDERED: LIDOCAINE (1%) 10 MG/1 ML VIAL 20 ML MDV ONE (07:39)
[2021-06-06] MEDS ORDERED: BUPIVACAINE/PF (0.25%) 2.5 MG/ML 30 ML VIAL INFILTRATI ONE ×2 (07:39→08:56)
[2021-06-06] MEDS ORDERED: fentaNYL 100 MCG/2 ML INJ ONE (07:47)
[2021-06-06] MEDS ORDERED: KETOROLAC 30 MG/1 ML INJ ONE (07:47)
[2021-06-06] MEDS ORDERED: LIDOCAINE MPF (2%) 20 MG/1 ML VIAL 5 ML ONE (07:47)
[2021-06-06] MEDS ORDERED: ONDANSETRON 4 MG/2 ML INJ ONE (07:47)
[2021-06-06] MEDS ORDERED: propofoL 200 MG/20 ML VIAL IV ONE (07:47)
[2021-06-06] MEDS ORDERED: LACTATED RINGERS 1,000 ML ONE (08:51)
[2021-06-06] MEDS ORDERED: LIDOCAINE (1%) 10 MG/1 ML VIAL 20 ML MDV INFILTRATI ONE (08:57)
[2021-06-06] MEDS ORDERED: ONDANSETRON 4 MG/2 ML INJ IV PRN (09:02)
[2021-06-06] MEDS ORDERED: HYDROcodone/ACETAMINOPHEN 5-325 MG TAB PO PRN (09:02)
[2021-06-06] MEDS ORDERED: HYDROmorphone 1 MG/1 ML INJ IV PRN (09:02)
--- NOTE | 2021-06-06 09:30 | Short Stay Summary ---
Short Stay Documentation Date of service: 06/06/21 - History H&P: obtained from office - Allergies and Medications Current Medications: Allergies Latex, Natural Rubber Allergy (Verified 05/24/21 16:18) Hives Home Medications Medication Instructions Recorded Confirmed Last Taken Type Ibuprofen [Motrin 800 MG tab] 800 mg PO Q8HR PRN #10 tablet 06/06/21 Unknown Rx Active Medications Acetaminophen (Acetaminophen 500 Mg Tab) 1,000 mg PO PREOP GIANA Stop: 06/06/21 20:00 Hydrocodone Bitart/Acetaminophen (Hydrocodone/Acetaminophen 5-325 Mg Tab) 2 each PO ONCE PRN PRN Reason: Pain, Moderate (4-6) Stop: 06/06/21 10:30 Cefazolin Sodium (Cefazolin/Sterile Water 2 Gm/20 Ml Syringe) 2 gm IV PREOP NR Stop: 06/06/21 23:01 Celecoxib (Celecoxib 200 Mg Cap) 200 mg PO PREOP NR Stop: 06/06/21 20:00 Gabapentin (Gabapentin 300 Mg Cap) 300 mg PO PREOP NR Stop: 06/06/21 23:00 Hydromorphone HCl (Hydromorphone 1 Mg/1 Ml Inj) 0.5 mg IV Q10MIN PRN PRN Reason: Pain , Severe (7-10) Stop: 06/06/21 23:00 Lactated Ringer's (Lactated Ringers) 1,000 mls @ 100 mls/hr IV DIRECT GIANA Stop: 06/06/21 23:59 Midazolam HCl (Midazolam 2 Mg/2 Ml Inj) 2 mg IV PREOP NR Stop: 06/06/21 23:00 Ondansetron HCl (Ondansetron 4 Mg/2 Ml Inj) 4 mg IV ONCE PRN PRN Reason: Nausea And Vomiting Stop: 06/06/21 12:00 Scopolamine (Scopolamine Transdermal Patch 72 Hr) 1 each TD PREOP NR Stop: 06/06/21 20:00 - Brief post op/procedure progress note Date of procedure: 06/06/21 Pre-op diagnosis: Left breast fibroadenoma lower inner quadrant Post-op diagnosis: same Procedure: Left breast fibroadenoma excisional biopsy of the lower inner quadrant Anesthesia: GETA Findings: Left breast fibroadeonoma 7:00 position 4 cm FN Surgeon: TREV VELAZQUEZ Estimated blood loss: minimal Pathology: list Specimen disposition: to lab Condition: stable - Disposition Condition at discharge: Good Disposition: DC-01 TO HOME OR SELFCARE Short Stay Discharge Plan Activity: other (no heavy lifting) Diet: regular Wound: keep clean and dry (may shower in 48 hours; no baths, pools or lakes) Follow up with: TREV VELAZQUEZ MD [Staff Physician] - 7 Days Prescriptions: Ibuprofen [Motrin 800 MG tab] 800 mg PO Q8HR PRN #10 tablet PRN Reason: Pain , Severe (7-10)
--- NOTE | 2021-06-06 09:39 | Operative Report ---
Operative Report Operative Report: Operative Report: June 06, 2021 Preoperative diagnosis: Left fibroadenoma/breast mass of the lower inner quadrant Postoperative diagnosis: Same Procedure: Complex left breast mass excisional biopsy of lower inner quadrant Surgeon: Cristina Krause MD Escort Patients: Jacinto Tamayo MD Anesthesia: General Findings: Left breast mass at 7:00 position 4 cm FN Complications: None EBL: Minimal (less than 25 cc) Disposition: PACU in good condition Indications for operative procedure: This is a 31 year old lady with left breast fibroadenoma/mass lower inner quadrant 7 o'clock position 4 cm from the nipple measuring of 2.6 cm. Patient underwent prior ultrasound-guided needle core biopsy in 02/02/2021 with findings of a fibroadenoma. Patient wished to proceed with excision given pain. She wished to proceed with the above procedure. Procedure in detail: Patient was then taken to the operating room. Gen. anesthesia was administered. The left breast and axilla were prepped and draped in the normal sterile operative fashion. Mass palpable at the 7:00 position 4 cm FN. Ultrasound was used as well. A periareolar breast incision was made around the 7:00 position with a 15 blade knife and dissection taken down to subcutaneous tissues. First began raising of the superior flap with dissection taken down posteriorly past the palpable mass, followed by raising of the inferior flap, superior flap and lateral flap with all flaps taken down posteriorly past the palpable mass. The breast mass was removed posteriorly with the aid of the Bovie cautery. Specimen was marked and then sent to pathology. Breast cavity was irrigated and hemostasis was obtained. Ultrasound was used with no areas of concern seen. The breast cavity was anesthetized with 1% lidocaine mixed with quarter percent Marcaine. The posterior deep breast tissues were approximated and closed using interrupted 3-0 Vicryl. The subcutaneous tissues were approximated and closed using interrupted 3-0 Vicryl followed by closing of the skin with a running 4-0 Monocryl and dermabond. The patient tolerated surgery very well and she was awaken from anesthesia without any complication and transported to PACU in good condition.
[2021-06-06 10:39] VITALS: BP 93/52
--- NOTE | 2021-06-06 11:52 | Post Anesthesia Evaluation ---
- Post Anesthesia Evaluation Patient Participated: Yes Airway Patent: Yes Stable Respiratory Function: Yes Nausea/Vomiting: No Temp > 96.8F: Yes Pain Manageable: Yes Adequeate Hydration: Yes Anesthesia Complications: No
== END 2021-06-06 10:25 | disposition home or self-care (01) ==
LOC: OR 06:25
PROVIDERS: ATTEND Surgery
DX: N60.22 Fibroadenosis of left breast (principal); N63.24 Unspecified lump in the left breast, lower inner quadrant; N64.4 Mastodynia; E66.9 Obesity, unspecified; F17.210 Nicotine dependence, cigarettes, uncomplicated; Z79.899 Other long term (current) drug therapy; Z98.890 Other specified postprocedural states; Z91.040 Latex allergy status; Z88.8 Allergy status to other drugs, medicaments and biological substances; Z68.22 Body mass index [BMI] 22.0-22.9, adult; Z20.822 Contact with and (suspected) exposure to COVID-19
CPT/HCPCS: 19120; 36415; 81025; 85027; 88305; J0690; J1885; J2405; J2704; J3010; J7120; U0003; 88307; J2250

== ENCOUNTER 2021-10-16 08:22 | Emergency (ER) | payer MEDICAID ==
[2021-10-16 09:36] VITALS: BP 122/71
--- NOTE | 2021-10-16 10:15 | Ultrasound Report ---
ULTRASOUND PELVIS INDICATION / CLINICAL INFORMATION: Severe pelvic pain. TECHNIQUE: Transabdominal. Duplex Color Doppler used: Yes. COMPARISON: None available FINDINGS: UTERUS: - Appearance: No significant abnormality. - Size (cm): 8.3 x 5.7 x 6.5 - Endometrial Complex (if present): Trace free fluid in the endometrium... Thickness in cm (if measur ed) = 1.3 - Mass or cyst: 3 cm serosal uterine fibroid along the anterior fundal wall. - Additional findings: None. RIGHT ADNEXA: No significant ovarian cyst or mass. Normal color Doppler blood flow. LEFT ADNEXA: 1.2 cm cyst. Normal color Doppler blood flow. URINARY BLADDER: No significant abnormality. FREE FLUID: None. ADDITIONAL FINDINGS: None. IMPRESSION: 1. No acute abnormality. 2. 3 cm serosal fibroid along the anterior fundal wall. Signer Name: Garland Cabello MD Signed: 10/16/2021 10:11 AM Workstation Name: [email or web address]
[2021-10-16 10:44] LABS: Basophils % (Auto) 0.5 % (0.0-1.8); Eosinophils # (Auto) 0.1 K/mm3 (0.0-0.4); Hematocrit 42.3 % (30.3-42.9); Hemoglobin 13.7 gm/dl (10.1-14.3); Lymphocytes # (Auto) 1.5 K/mm3 (1.2-5.4); Lymphocytes % (Auto) 22.2 % (13.4-35.0); Mean Corpuscular HGB Conc 32 % (30-34); Mean Corpuscular Volume 92 fl (79-97); Monocytes # (Auto) 0.3 K/mm3 (0.0-0.8); Platelet Count 219 K/mm3 (140-440); Red Blood Count 4.59 M/mm3 (3.65-5.03); Red Cell Distribution Width 12.7 % (13.2-15.2)
[2021-10-16 11:08] LABS: Alanine Aminotransferase 9 units/L (7-56); Albumin 4.2 g/dL (3.9-5); Blood Urea Nitrogen 10 mg/dL (7-17); Calcium 8.9 mg/dL (8.4-10.2); Hemolysis Index 7
[2021-10-16 11:14] LABS: BUN/Creatinine Ratio 17
[2021-10-16 11:59] LABS: Bilirubin,Urine NEG (Negative); Blood,Urine NEG (Negative); Color,Urine Yellow (Yellow); Mucus,Urine FEW /HPF; Protein,Urine <15 mg/dL mg/dL (Negative); RBC,Urine < 1.0 /HPF (0.0-6.0); Urobilinogen,Urine < 2.0 mg/dL (<2.0); WBC,Urine < 1.0 /HPF (0.0-6.0)
--- NOTE | 2021-10-16 12:03 | Emergency Department Report ---
ED Female HPI - General Chief complaint: Vaginal Bleeding Stated complaint: SEVERE ABD/PELVIC PAIN, LEG CRAMPS Time Seen by Provider: 10/16/21 09:27 Source: patient Mode of arrival: Ambulatory Limitations: No Limitations - History of Present Illness Initial comments: 31-year-old female presents to the emergency room complaining of her fibroids are flaring up. Patient states that she is scheduled for uterine fibroid embolization next week through interventional radiology. Patient states that increased pain has been going on for a month. She is followed by Dr. Cole at [facility]. Complaint: pelvic pain Onset/Timin -: month(s) Location: suprapubic Severity: severe Severity scale (0 -10): 8 Quality: sharp Consistency: intermittent Improves with: none Worsens with: none Are you Now?: No Associated Symptoms: abdominal pain. denies: nausea/vomiting, fever/chills - Related Data Sexually active: Yes : 7 Para: 5 Previous Rx's Medication Instructions Recorded Last Taken Type Ibuprofen [Motrin 800 MG tab] 800 mg PO Q8HR PRN #10 tablet 06/06/21 Unknown Rx traMADoL [Ultram 50 MG tab] 50 mg PO Q6HR PRN #12 tablet 10/16/21 Unknown Rx Allergies Allergy/AdvReac Type Severity Reaction Status Date / Time Latex, Natural Rubber Allergy Hives Verified 10/16/21 08:33 ED Review of Systems ROS: Stated complaint: SEVERE ABD/PELVIC PAIN, LEG CRAMPS Other details as noted in HPI Comment: All other systems reviewed and negative ED Past Medical Hx - Past Medical History Hx Hypertension: No Hx Congestive Heart Failure: No Hx Diabetes: No Hx Deep Vein Thrombosis: No Hx Renal Disease: Yes (BLADDER INFECTION ON FLAGYL) Hx Sickle Cell Disease: No Hx Seizures: No Hx Asthma: No Hx COPD: No Hx HIV: No - Surgical History Hx Cholecystectomy: Yes Additional Surgical History: csection x 3, D and C - Social History Smoking Status: Current Every Day Smoker - Medications Home Medications: Home Medications Medication Instructions Recorded Confirmed Last Taken Type Ibuprofen [Motrin 800 MG tab] 800 mg PO Q8HR PRN #10 tablet 06/06/21 Unknown Rx traMADoL [Ultram 50 MG tab] 50 mg PO Q6HR PRN #12 tablet 10/16/21 Unknown Rx ED Physical Exam - General Limitations: No Limitations General appearance: alert, in no apparent distress - Head Head exam: Present: atraumatic, normocephalic - Eye Eye exam: Present: normal appearance - ENT ENT exam: Present: mucous membranes moist - Neck Neck exam: Present: normal inspection - Respiratory Respiratory exam: Present: normal lung sounds bilaterally. Absent: respiratory distress - Cardiovascular Cardiovascular Exam: Present: regular rate, normal rhythm. Absent: systolic mu rmur, diastolic murmur, rubs, gallop - GI/Abdominal GI/Abdominal exam: Present: soft, normal bowel sounds - Extremities Exam Extremities exam: Present: normal inspection - Back Exam Back exam: Present: normal inspection - Neurological Exam Neurological exam: Present: alert, oriented X3 - Psychiatric Psychiatric exam: Present: normal affect, normal mood - Skin Skin exam: Present: warm, dry, intact, normal color. Absent: rash ED Course Vital Signs 10/16/21 08:35 Temperature 98.1 F Pulse Rate 78 Respiratory 16 Rate Blood Pressure 122/71 O2 Sat by Pulse 98 Oximetry ED Medical Decision Making - Lab Data Result diagrams: 10/16/21 10:18 10/16/21 10:18 - Radiology Data Radiology results: report reviewed [facility] [address] [place] [address] Ultrasound Report Signed Patient: FAINA DOWNS MR#: [id number] : 1990 Acct:[id number] Age/Sex: 31 / F ADM Date: 10/16/21 Loc: ED Attending Dr: Ordering Physician: CLEO REYES Date of Service: 10/16/21 Procedure(s): US pelvic complete Accession Number(s): [id number] cc: CLEO REYES ULTRASOUND PELVIS INDICATION / CLINICAL INFORMATION: Severe pelvic pain. TECHNIQUE: Transabdominal. Duplex Color Doppler used: Yes. COMPARISON: None available FINDINGS: UTERUS: - Appearance: No significant abnormality. - Size (cm): 8.3 x 5.7 x 6.5 - Endometrial Complex (if present): Trace free fluid in the endometrium... Thickness in cm (if measured) = 1.3 - Mass or cyst: 3 cm serosal uterine fibroid along the anterior fundal wall. - Additional findings: None. RIGHT ADNEXA: No significant ovarian cyst or mass. Normal color Doppler blood flow. LEFT ADNEXA: 1.2 cm cyst. Normal color Doppler blood flow. URINARY BLADDER: No significant abnormality. FREE FLUID: None. ADDITIONAL FINDINGS: None. IMPRESSION: 1. No acute abnormality. 2. 3 cm serosal fibroid along the anterior fundal wall. Signer Name: Garland Cabello MD Signed: 10/16/2021 10:11 AM Workstation Name: [email or web address] Transcribed By: SB Dictated By: GARLAND CABELLO MD Electronically Authenticated By: GARLAND CABELLO MD Signed Date/Time: 10/16/21 1011 DD/ 1008 TD/TT: - Medical Decision Making 31-year-old female presents to the emergency room complaining of her fibroids are flaring up. Patient states that she is scheduled for uterine fibroid embolization next week through interventional radiology. Patient states that increased pain has been going on for a month. She is followed by Dr. Cole at [facility]. Ultrasound labs were done Labs are nonactionable ultrasound is stable shows no acute abnormalities patient does have a fibroid and a cyst. Discussed with Dr. Cole from [facility] she states patient is post to have this procedure done with interventional radiology. She offered to see the patient in the clinic this week if she would like before her procedure. Patient can take pain medication. Reevaluated patient discussed with patient her labs as well as her ultrasound. Patient is going to call interventional radiology and see if she can get seen this week for her procedure. I discussed with patient I will place her in a few pain pills to get her through for the next few days. Patient verbalized understanding. Critical care attestation.: If time is entered above; I have spent that time in minutes in the direct care of this critically ill patient, excluding procedure time. ED Disposition Clinical Impression: Fibroids, Pelvic pain Disposition: 01 HOME / SELF CARE / HOMELESS Is pt being admited?: No Does the pt Need Aspirin: No Condition: Stable Instructions: Uterine Fibroids, [id number] Additional Instructions: Take pain medication as needed. Follow-up with Dr. Cole your [facility] this week if you have any further concerns. Be sure to call interventional radiology to discuss when your procedure is scheduled. Do not operate heavy machinery while taking tramadol. Prescriptions: traMADoL [Ultram 50 MG tab] 50 mg PO Q6HR PRN #12 tablet PRN Reason: Pain Referrals: PRIMARY CARE, [Primary Care Provider] - 3-5 Days [facility] [Provider Group] - 3-5 Days Forms: Work/School Release Form(ED) Time of Disposition: 12:11
== END 2021-10-16 12:17 | disposition home or self-care (01) ==
LOC: ED 08:22
DX: D25.9 Leiomyoma of uterus, unspecified (principal); R10.2 Pelvic and perineal pain; Z90.49 Acquired absence of other specified parts of digestive tract; F17.200 Nicotine dependence, unspecified, uncomplicated; Z91.040 Latex allergy status
CPT/HCPCS: 36415; 76856; 80053; 81001; 84702; 85025; 86850; 86900; 86901; 99284